=== PATIENT | male | born 1975 | race Caucasian/White ===

== ENCOUNTER 2017-04-28 10:42 | Emergency (ER) | payer SELFPAY ==
[~2017-04-28] VITALS: Ht 188 cm; Wt 102.0 kg
[~2017-04-28 10:42] MED LIST: LORT5TAB PO; Z.0.NO CURRENT MEDS
[2017-04-28 10:43] VITALS: BP 116/65; PULSE 68; RESP 18; TEMP 98.4; O2SAT 96
--- NOTE | 2017-04-28 11:03 | PD ---
HPI Chief Complaint: Laceration/Skin Injury Time Seen by Provider: 11:03 Travel History International Travel<30 days: No Contact w/Intl Traveler<30days: No Traveled to known affect area: No History of Present Illness HPI 42-year-old male presents to the emergency department for evaluation of chain saw laceration the left arm that occurred about 30 minutes ago. The patient states he was at home cutting a fence post holding the chain saw about his head and had a downward angle when his called his name and he was distracted causing the chainsaw to bounce back hitting the lateral aspect of his left upper arm. He complains of pain at the site and pain in his left elbow. Pain is aggravated with movement. Denies any alleviating factors. Unsure of last tetanus vaccination. Denies any numbness or tingling, weakness, decreased range of motion. No other complaints. PFSH Past Medical History Medical History: Denies Significant Hx Diminished Hearing: No Past Surgical History Surgical History: No Previous Surgery Social History Alcohol Use: Yes (OCCCASSIONAL BEER) Tobacco Use: No Substance Use: No Allergies-Medications (Allergen,Severity, Reaction): Coded Allergies: No Known Allergies (Verified , 04/28/17) Reported Meds & Prescriptions Reported Meds & Active Scripts Active Tramadol (Tramadol HCl) 50 Mg Tab 50 Mg PO Q6H PRN Keflex (Cephalexin) 500 Mg Cap 500 Mg PO Q12H 7 Days Review of Systems Except as stated in HPI: all other systems reviewed are Neg Physical Exam Narrative GENERAL: Well-nourished and well-developed pleasant male patient in no acute distress. SKIN: Warm and dry. Laceration to lateral left upper arm 12 cm in length by 3 cm in width. HEAD: Normocephalic and atraumatic. EYES: No injection, drainage, or hyphema noted. PERRLA. EOMI. ENT: No nasal drainage noted. Oropharynx is clear. NECK: Supple and the trachea is midline. CARDIOVASCULAR: Regular rate and rhythm. RESPIRATORY: Breath sounds are equal bilaterally with no accessory muscle use, wheezing, rhonchi, or crackles. GASTROINTESTINAL: Abdomen is soft, non-tender, and nondistended. MUSCULOSKELETAL: No obvious deformities, swelling, cyanosis, or ecchymosis is present throughout the upper and lower extremities. Patient has full range of motion without any signs of neurovascular compromise. Strength 5/5 upper and lower extremities equal bilaterally. 2 point discrimination is intact. Radial pulses are 2+ bilaterally. Capillary refill is within normal limits. NEUROLOGICAL: Awake, alert, and oriented. Normal speech and gait. Cranial nerves are grossly intact. Data Data Last Documented VS Vital Signs Date Time Temp Pulse Resp B/P Pulse Ox O2 Delivery O2 Flow Rate FiO2 04/28/17 10:43 98.4 68 18 116/65 96 Room Air Orders Tetanus/Diphtheria Tox Adult (Tetanus/Di (04/28/17 11:15) Lidocai-Epi 1%-1:100,000 Inj (Xylocaine- (04/28/17 11:15) Humerus (Min 2vws) (04/28/17 11:01) MDM Medical Decision Making Medical Screen Exam Complete: Yes Emergency Medical Condition: Yes Differential Diagnosis Laceration versus deep versus superficial versus avulsion Narrative Course 42-year-old male presents to the emergency department for evaluation of laceration of left upper arm secondary to chainsaw. Patient is afebrile, vital signs are stable. Patient's left upper extremity is neurovascularly intact. He is complaining of pain in his left elbow however the laceration doesn't extend to the elbow therefore we'll do an x-ray of the humerus to rule out any bony injury. Tetanus vaccination is updated here in the ED. Laceration repairs performed, see procedure narrative for further details. X-rays unremarkable for any acute abnormalities. Discussed proper wound care techniques with the patient. He is discharged with Keflex and tramadol. Patient verbalizes understanding and agreement with treatment plan. Procedures Procedure Narrative LACERATION LOCATION: Left lateral upper arm LENGTH: 12 cm NUMBER OF STITCHES/MICHELLE: 4 inner Vicryl sutures, 24 outer Ethilon sutures REPAIR: The area of the laceration was prepped with Betadine and sterilely draped. The laceration was infiltrated with lidocaine 1% with epinephrine. The wound was copiously irrigated and explored without evidence of foreign body , tendon injury or neurovascular injury. The wound was closed using 3. 0 Vicryl inner layer and 3. 0 Ethilon outer layer. This was a double layer repair. Antibiotic ointment and a sterile dressing was applied. The patient was advised to keep the dressing clean and dry. Patient tolerated the procedure well. Diagnosis Primary Impression: Laceration of arm Qualified Code: S41.112A - Laceration of arm, left, initial encounter Referrals: Primary Care Physician Patient Instructions: General Instructions, Laceration (ED) Additional Instructions: Keep wound clean and dry. You may wash gently with soap and water. Apply topical antibiotic ointment twice daily. Have sutures removed in 10-14 days. Take medications as prescribed with food and a full glass of water. Follow-up with your Primary Care Physician. Return to the ED for any acute worsening of symptoms. Med/Other Pt SpecificInfo: Prescription(s) given Scripts Tramadol 50 Mg Tab50 Mg PO Q6H PRN (PAIN GREATER THAN 6) #10 TAB Ref 0 Prov:Poonam Malagon MD 04/28/17 Cephalexin (Keflex)500 Mg [id number] Mg PO Q12H 7 Days Ref 0 Prov:Poonam Malagon MD 04/28/17 Disposition: 01 DISCHARGE HOME Condition: Stable [place] Apr 28, 2017 11:03
[2017-04-28] MEDS ORDERED: TETANUS/DIPHTHERIA TOXOID ADULT 0.5 ML VIAL IM ONE (11:15)
[2017-04-28] MEDS ORDERED: LIDOCAINE 1%/EPINEPHrine 1:100,000 SOLN 20 ML VIAL INFIL ONE (11:15)
--- NOTE | 2017-04-28 11:57 | RADRPT ---
EXAM DATE/TIME: 04/28/2017 11:30 [facility] COMPARISON: No previous studies available for comparison. INDICATIONS : Left arm pain and laceration from chain saw. MEDICAL HISTORY : None. SURGICAL HISTORY : None. ENCOUNTER: Initial ACUITY: 1 day PAIN SCORE: 7/10 LOCATION: Left distal humerus FINDINGS: Two view examination of the left humerus demonstrates no evidence of fracture or dislocation. Bony m ineralization is normal. The soft tissue structures demonstrate a large laceration of the distal arm posterior laterally without underlying bone defect or definite foreign body. CONCLUSION: Distal arm laceration. Gabriel Mendosa MD on April 28, 2017 at 11:54 Board Certified Radiologist. This report was verified electronically.
[2017-04-28] MEDS ORDERED: CEPH-460 PO (13:17)
[2017-04-28] MEDS ORDERED: TRAM50TA PO ×2 (13:17→13:19)
== END 2017-04-28 13:27 | disposition home or self-care (01) ==
LOC: NEPD 10:42
DX: S41.119A Laceration without foreign body of unspecified upper arm, initial encounter (principal); Z23 Encounter for immunization; W29.3XXA Contact with powered garden and outdoor hand tools and machinery, initial encounter; Y92.9 Unspecified place or not applicable
CPT/HCPCS: 12034; 73060; 90471; 90714